=== PATIENT | male | born 1990 | race Asian ===

== ENCOUNTER 2025-01-24 19:35 | Emergency (ER) | payer SELFPAY ==
[2025-01-24 19:41] VITALS: BP 125/78; PULSE 88; RESP 18; TEMP 98.6; BMI 23.4
== END 2025-01-24 20:53 | disposition home or self-care (01) ==
LOC: JERFT 19:35
DX: L98.9 Disorder of the skin and subcutaneous tissue, unspecified (principal); L08.9 Local infection of the skin and subcutaneous tissue, unspecified
CPT/HCPCS: 99283-25